=== PATIENT | female | born 1965 | race Caucasian/White ===

== ENCOUNTER 2017-03-24 13:39 | Emergency (ER) | payer OTHER ==
[2017-03-24 13:43] VITALS: BP 157/75; PULSE 73; TEMP 97.9; BMI 23.8
--- NOTE | 2017-03-24 14:25 | PDOC ---
History of Present Illness - General Chief Complaint: Pain Stated Complaint: LEG PAIN Time Seen by Provider: 03/24/17 13:46 History Source: Patient Exam Limitations: No Limitations - History of Present Illness Initial Comments: 03/24/17 15:37 52 year old female presents to the ED with complaints of right calf pain since yesterday after getting into the car. Patient states pain is worse with standing and ambulation. Patient denies any lower extremity edema, skin discoloration, chest pain, shortness of breath, or decreased sensation or warmth to the area. Patient states smokes cigarettes daily and has history of high cholesterol currently on no medication. Patient denies recent travel, recent illness, recent change in diet. Severity: mild Associated Symptoms: reports: denies symptoms Past History - Travel Traveled outside of the country in the last 30 days: Yes - Past Medical History Allergies/Adverse Reactions: Allergies Allergy/AdvReac Type Severity Reaction Status Date / Time No Known Allergies Allergy Verified 03/24/17 13:41 - Psycho/Social/Smoking Cessation Hx Anxiety: No Suicidal Ideation: No Smoking History: Never smoked Have you smoked in the past 12 months: No Information on smoking cessation initiated: No Hx Alcohol Use: No Drug/Substance Use Hx: No Substance Use Type: None Patient Lives Alone: No Lives with/in: spouse/SO Review of Systems - Review of Systems Able to Perform ROS?: Yes Constitutional: No: Symptoms Reported HEENTM: No: Symptoms Reported Respiratory: No: Symptoms reported Cardiac (ROS): No: Symptoms Reported ABD/GI: No: Symptoms Reported : No: Symptoms Reported Musculoskeletal: Yes: Muscle Pain (right leg) Integumentary: No: Symptoms Reported Neurological: No: Symptoms reported Endocrine: No: Symptoms Reported Hematologic/Lymphatic: No: Symptoms Reported *Physical Exam - Vital Signs Last Vital Signs Temp Pulse Resp BP Pulse Ox 97.9 F 73 18 157/75 100 03/24/17 13:41 03/24/17 13:41 03/24/17 13:41 03/24/17 13:41 03/24/17 13:41 - Physical Exam General Appearance: Yes: Nourished, Appropriately Dressed. No: Apparent Distress HEENT: positive: EOMI, ARMANDO, TMs Normal, Pharynx Normal. negative: Pale Conjunctivae Neck: positive: Supple Respiratory/Chest: positive: Lungs Clear, Normal Breath Sounds. negative: Respiratory Distress, Accessory Muscle Use Cardiovascular: positive: Regular Rhythm, Regular Rate. negative: Murmur Gastrointestinal/Abdominal: positive: Soft. negative: Tenderness Musculoskeletal: negative: CVA Tenderness Extremity: positive: Normal Capillary Refill, Normal Range of Motion, Tender ( right calf and anterior midshin). negative: Pedal Edema Integumentary: positive: Normal Color, Warm, Moist Neurologic: positive: Motor Strength 5/5 (ambulatory). negative: Normal Mood/ Affect ED Treatment Course - LABORATORY CBC & Chemistry Diagram: 03/24/17 14:40 03/24/17 14:40 Medical Decision Making - Medical Decision Making 03/24/17 15:04 Patient with complaints of right leg pain since yesterday without injury. Patient then had right calf tenderness concerning for DVT. Patient also ordered for Toradol and basic labs to check electrolytes. 03/24/17 15:58 DVT study negative. Patient states that after receiving Toradol. Will discharge patient home 03/24/17 16:00 *DC/Admit/Observation/Transfer Diagnosis at time of Disposition: Right leg pain - Discharge Dispostion Disposition: HOME Condition at time of disposition: Improved - Patient Instructions Printed Discharge Instructions: DI for Leg Pain Additional Instructions: Please take Motrin or Tylenol for discomfort and if pain continues despite rest and massage please follow up with your PCP for further management.
[2017-03-24] MEDS ORDERED: KETOROLAC TROMETHAMINE 60 MG/2 ML VIAL IM ONE (14:26)
[2017-03-24] MEDS ORDERED: KETOROLAC TROMETHAMINE 60 MG/2 ML VIAL ONE (14:37)
[2017-03-24 15:03] LABS: BASOPHIL 0.3 % (0-2.0); EOSINOPHIL 1.4 % (0-4.5); MCH 26.8 pg (25.7-33.7); MCHC 31.6 g/dl (32.0-36.0); MEAN CELL VOLUME 84.8 fl (80-96); MEAN PLT VOLUME 8.8 fl (7.5-11.1); NEUTROPHILS 68.3 % (42.8-82.8); PLATELET COUNT 176 K/MM3 (134-434); RDW 14.3 % (11.6-15.6); WHITE BLOOD COUNT 7.9 K/mm3 (4.0-10.0)
[2017-03-24 15:14] LABS: ALBUMIN 4.1 g/dl (3.4-5.0); ANION GAP 8 (8-16); CALCIUM 9.4 mg/dL (8.5-10.1); CO2 27 mmol/L (21-32); GLUCOSE,RANDOM 89 mg/dL (74-106); MAGNESIUM 2.4 mg/dL (1.8-2.4); SGPT/ALT 14 U/L (12-78)
[2017-03-24 15:17] LABS: ALK PHOS 54 U/L (45-117); BILIRUBIN,TOTAL 0.4 mg/dL (0.2-1.0); CREATININE 0.8 mg/dL (0.55-1.02); SGOT/AST 15 U/L (15-37); TOT PROT 6.9 g/dl (6.4-8.2)
== END 2017-03-24 16:07 | disposition home or self-care (01) ==
LOC: JERFT 13:39
PROC: 3E0233Z Introduction of Anti-inflammatory into Muscle, Percutaneous Approach (ICD-10-PCS; principal; 2017-03-24)
DX: M79.1 Myalgia (principal)
CPT/HCPCS: 36415; 80053; 83735; 85025; 93971-TC; 99281-25